=== PATIENT | male | born 1965 | race American Indian/Alaskan Native ===

== ENCOUNTER 2020-12-20 13:10 | Outpatient (CLI) | payer OTHER ==
--- NOTE | 2020-12-20 15:03 | XRay Report ---
LUMBOSACRAL SPINE 3 VIEWS INDICATION: Back pain. COMPARISON: None. IMPRESSION: Normal alignment. 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 No acute osseous or soft tissue abnormality. BILATERAL KNEES 2 VIEWS INDICATION: BILATERAL KNEE PAIN. COMPARISON: None. IMPRESSION: No acute osseous or soft tissue abnormality. Moderate osteoarthritic changes are iden tified in the patellofemoral space of the right knee. Mild osteoarthritic changes are identified in t he patellofemoral space of the left knee. There are approximately 10-12 calcified bodies in the popli teal fossa of the left knee which probably represent calcified foreign bodies in a popliteal cyst. Signer Name: Fan Servin Jr, MD Signed: 12/20/2020 2:59 PM Workstation Name: [id number]
== END 2020-12-20 13:11 | disposition home or self-care (01) ==
LOC: XRAY 13:10
PROVIDERS: ATTEND Internal Medicine
DX: M17.0 Bilateral primary osteoarthritis of knee (principal); M47.817 Spondylosis without myelopathy or radiculopathy, lumbosacral region
CPT/HCPCS: 72100